=== PATIENT | male | born 1950 | race Hispanic/Latino ===

== ENCOUNTER 2017-08-13 11:38 | Day surgery (SDC) | payer OTHER ==
[2017-08-08 21:12] VITALS: BMI 28.8
[2017-08-13 09:47] VITALS: PULSE 66
[2017-08-13] MEDS ORDERED: Midazolam 2 MG/2 ML VIAL ONE (13:00)
[2017-08-13 13:31] LABS: ARTERIAL BLOOD HGB O2 SAT 65.6 % (95.0-98.0); CARBOXYHEMOGLOBIN 1.9 % (0.5-1.5); DRAW SITE AO; HHB 31.1 % (0.0-5.0); METHEMOGLOBIN 1.4 % (0.0-3.0)
[2017-08-13 13:35] LABS: DRAW SITE RA; VENOUS BLOOD GAS BASE EXCESS 6.8 mmol/L (0.0-2.0); VENOUS BLOOD GAS PCO2 71 mmHg (40-60); VENOUS BLOOD PH 7.31 (7.32-7.43)
[2017-08-13 13:39] LABS: DRAW SITE PA; VENOUS BLOOD GAS BASE EXCESS 7.6 mmol/L (0.0-2.0); VENOUS BLOOD GAS PCO2 75 mmHg (40-60)
--- NOTE | 2017-08-14 00:37 | CARDCATH ---
PROCEDURE DATE: 08/13/2017 INDICATIONS: Mr. Aguila Flannery is a 66-year-old male who was admitted to [facility] for recurrent episode of CHF exacerbation. He had new-onset congestive heart failure recently diagnosed in June, at which time his ejection fraction was noted to be severely depressed. He was also severely short of breath with bilateral lower extremity swelling. He was treated for acute systolic congestive heart failure with IV diuretic therapy. He also has known chronic kidney disease stage III/IV, for which he has been followed by Dr. Bruce over the last several years. He was subsequently transferred to [facility] from [place] for further evaluation and treatment of his new-onset CHF with borderline positive troponins. PROCEDURES PERFORMED: Right and left heart catheterization with selective left and right coronary angiogram via right femoral artery and venous access. TECHNIQUES OF PROCEDURE: After obtaining informed consent, the patient was brought to the cardiac cath suite in post-absorptive and non-sedated state. The patient was prepped and draped in the usual sterile fashion. 2% lidocaine was used for infiltration of anesthesia. Using modified Seldinger technique, a 6-[place] sheath was introduced into the right femoral artery and a 7-[place] sheath was introduced into the right femoral vein. Subsequently, under fluoroscopic guidance, with the balloon inflated off with the pulmonary capillary [place] catheter was serially advanced through the IVC into the RA, RV, PA and wedge positions. Hemodynamics and saturations were obtained. Right heart cath findings; RA pressures 25/19/15 with a mean RA pressure of 15 mmHg. RV pressures 86/15/25 with RV end-diastolic pressure of 25 mmHg. Pulmonary capillary wedge pressure is 26/26/19 with a mean pressure of 19 mmHg. Pulmonary artery pressures is 85/26/50, mean PA pressure of 50 mmHg. The femoral artery saturation is 67.8, RA saturation is 64.8 with PA saturations of 55.7. Left heat catheterization findings; left main is a large-sized vessel bifurcates into the left anterior descending and left circumflex coronary artery. Left anterior descending artery is a large-sized vessel, gives 2 diagonal branches, has [id number] mid LAD, 40% to 55% stenosis. Left circumflex, large-sized vessel, gives a 1 small obtuse marginal branch. Ramus intermedius is a small-sized vessel with nonobstructive disease. Right coronary artery, medium-sized vessel gives off PD and PLV branches with positive mid 40% stenosis. LVEDP was 24 mmHg. IMPRESSION: [id number] nonobstructive coronary artery disease, [id number]-[id number] pulmonary hypertension, elevated filling pressures with low-normal cardiac output. RECOMMENDATIONS: Guideline-directed medical therapy for CHF. Workup for underlying pulmonary causes of hypoxemia and pulmonary hypertension. I would recommend to treat the patient for systolic and diastolic CHF along with primary pulmonary hypertension. Patrick Armstrong MD cc:MD Star Navas MD Joseph Kozel, MD
[2017-08-14 16:24] VITALS: RESP 22; O2SAT 97
== END 2017-08-13 14:54 | disposition home or self-care (01) ==
LOC: C.CATHLAB 11:38
PROVIDERS: ATTEND Internal Medicine Interventional Cardiology
DX: I50.22 Chronic systolic (congestive) heart failure (principal); I25.10 Atherosclerotic heart disease of native coronary artery without angina pectoris; N18.3 Chronic kidney disease, stage 3 (moderate); I27.20 Pulmonary hypertension, unspecified; Z45.2 Encounter for adjustment and management of vascular access device
CPT/HCPCS: 82803; 93461; C1714; C1760; C1766; C1769; C1887; J1644; J2250; J3010; Q9967